=== PATIENT | male | born 1970 | race American Indian/Alaskan Native ===

== ENCOUNTER 2017-04-11 07:17 | Day surgery (SDC) | payer OTHER ==
[2017-04-11] MEDS ORDERED: NACL 0.9% 500 ML 500 ML IV SCH (08:00)
[2017-04-11] MEDS ORDERED: CALAN ONE (09:24)
[2017-04-11] MEDS ORDERED: HEPARIN 10,000 UNITS/10 ML ONE (09:24)
[2017-04-11] MEDS ORDERED: XYLOCAINE 2% INFILTRATI ONE (09:24)
[2017-04-11] MEDS ORDERED: NITROGLYCERIN SYRINGE 3 ML ONE (09:24)
[2017-04-11] MEDS ORDERED: HEPARIN/NS 5000 UNIT/500ML(CATH LAB) 1,000 ML IR ONE (09:24)
[2017-04-11 09:34] LABS: Basophils % (Auto) 0.8 % (0.0-1.8); Eosinophils % (Auto) 2.2 % (0.0-4.3); Hematocrit 42.8 % (35.5-45.6); Hemoglobin 14.3 gm/dl (11.8-15.2); Mean Corpuscular HGB Conc 33 % (32-34); Mean Corpuscular Hemoglobin 30 pg (28-32); Mean Corpuscular Volume 90 fl (84-94); Platelet Count 230 K/mm3 (140-440); Red Blood Count 4.77 M/mm3 (3.65-5.03); White Blood Count 4.4 K/mm3 (4.5-11.0)
[2017-04-11 09:40] LABS: Anion Gap 15 mmol/L; Blood Urea Nitrogen 16 mg/dL (9-20); Calcium 9.1 mg/dL (8.4-10.2); Carbon Dioxide 24 mmol/L (22-30); Chloride 103.4 mmol/L (98-107); Glucose 101 mg/dL (75-100); Potassium 4.5 mmol/L (3.6-5.0); Sodium 138 mmol/L (137-145)
[2017-04-11] MEDS: VERSED ONE ×2 (09:45→10:02)
[2017-04-11] MEDS: SUBLIMAZE ONE ×2 (09:45→09:53)
[2017-04-11 09:54] LABS: INR 0.97 (0.87-1.13)
--- NOTE | 2017-04-11 10:32 | Prelim Cardiac Cath Report ---
Preliminary Cath Report - Hemodynamic Findings Aorta(AO): 120/80 Left Ventricular(LV): 120/18 - Other Findings Estimated blood loss: none Dominance: right LV Contractility: anterior and apical dyskinesis with ef 40-45% Coronary Anatomy: findings: 1. CAD * multifocal lens inspector of mid LAD with nat 2 flow and under-developed collaterals (?result of old dissection) * chronic long dissection of the prox and mid RCA with nat 3 flow 2. Anterior and meredith-apical hypokinesis with ef of 40-45% 3. No as Pt is clinically stable and doing well. Standard radial care. Underlying connective tissue disorder or SCAD? D/w patient and at length. recommend cabg. Pt will be transferred to [facility] in stable condition for the same.
--- NOTE | 2017-04-11 11:04 | Short Stay Summary ---
Short Stay Documentation Date of service: 04/11/17 - History H&P: obtained from office - Allergies and Medications Current Medications: Allergies Penicillins Allergy (Verified 04/11/17 08:57) Rash Home Medications Medication Instructions Recorded Confirmed Last Taken Type Aspirin EC [Aspirin Enteric Coated 81 mg PO DAILY 04/11/17 04/11/17 04/11/17 06: 30 History TAB] Metoprolol Succinate [Metoprolol 25 mg PO BID 04/11/17 04/11/17 04/11/17 06:00 History Succinate] Active Medications Sodium Chloride (Nacl 0.9% 500 Ml) 500 mls @ 50 mls/hr IV DIRECT CHRISTIAN Stop: 04/11/17 17:59 Last Admin: 04/11/17 08:54 Dose: 50 mls/hr - Brief post op/procedure progress note Date of procedure: 04/11/17 Pre-op diagnosis: abnormal stress test Procedure: left heart cath - Hospital course Hospital course: Please see dictated cath report. Pt. transferred to [facility] for evaluation for CABG. - Disposition Condition at discharge: Stable Disposition: [id number]/TX-70 ANOTHER TYPE HLTHCARE - Discharge Diagnoses (1) CAD (coronary artery disease) Status: Acute Qualifiers: Coronary Disease-Associated Artery/Lesion type: C [place] vs. transplanted heart: N Associated angina: A (2) Hypertension Status: Chronic Qualifiers: Hypertension type: H Short Stay Discharge Plan Follow up with: JAMARI RYAN MD [Primary Care Provider] - 7 Days
[2017-04-11 12:34] VITALS: BP 147/100
== END 2017-04-11 12:45 | disposition other institution (70) ==
LOC: OPU 07:17
PROVIDERS: ATTEND Internal Medicine
DX: I25.10 Atherosclerotic heart disease of native coronary artery without angina pectoris (principal); I10 Essential (primary) hypertension; E66.9 Obesity, unspecified; Z68.32 Body mass index [BMI] 32.0-32.9, adult; Z88.0 Allergy status to penicillin; Z79.82 Long term (current) use of aspirin; Z79.899 Other long term (current) drug therapy; Z98.890 Other specified postprocedural states
CPT/HCPCS: 36415; 80048; 85025; 85610; 85730; 93005; 93010; 93458; C1894; J1644; J2250; J3010; J7040; Q9967

== ENCOUNTER 2017-04-25 15:45 | Inpatient (IN) | payer OTHER ==
[2017-04-25] MEDS ORDERED: PERCOCET 5/325 PO PRN (16:42)
[2017-04-25] MEDS ORDERED: DULCOLAX PR PRN (16:42)
[2017-04-25] MEDS ORDERED: DUONEB *Not for PRN Use IH (16:42)
[2017-04-25] MEDS ORDERED: ZOFRAN IV PRN (16:42)
[2017-04-25] MEDS ORDERED: MILK OF MAGNESIA PO PRN (16:42)
[2017-04-25] MEDS ORDERED: TYLENOL PO PRN (16:42)
--- NOTE | 2017-04-25 16:49 | History and Physical Report ---
History of Present Illness Chief complaint: My doctor told me to come in, because i have a blood clot History of present illness: 47 YO Male with HTN, CAD directly admitted at the request of the cardiology team. Pt was seen and evaluated in his cardiologists office and fond to have leg swelling, with ultrasound evidence of RLE DVT. Pt admitted for treatment. Pt seen and evaluated upon arrival. Pt denies fever, chills,CP, Palpitations, NVD, syncope, hemoptysis, BRBPR, trauma, productive cough, or recent ill contacts. Pt denies any complaints at time of exam and interview. Pt at bedside. Past History Past Medical History: CAD, hypertension Past Surgical History: No surgical history, Other (reviewed) Social history: , lives with family. denies: smoking, alcohol abuse, prescription drug abuse Family history: hypertension Medications and Allergies Allergies Allergy/AdvReac Type Severity Reaction Status Date / Time Penicillins Allergy Rash Verified 04/11/17 08:57 oxycodone AdvReac Shortness Verified 04/26/17 04:25 of Breath Home Medications Medication Instructions Recorded Confirmed Last Taken Type Aspirin EC [Aspirin Enteric Coated 81 mg PO DAILY 04/11/17 04/11/17 04/11/17 06: 30 History TAB] Metoprolol Succinate [Metoprolol 25 mg PO BID 04/11/17 04/11/17 04/11/17 06:00 History Succinate] Active Meds: Active Medications Acetaminophen (Tylenol) 650 mg PO Q4H PRN PRN Reason: Pain MILD(1-3)/Fever >100.5/ELLIOTT Albuterol/Ipratropium (Duoneb *Not For Prn Use*) 1 ampul IH Q6HRT PRN PRN Reason: Wheezing Bisacodyl (Dulcolax) 10 mg [place] QDAY PRN PRN Reason: Constipation unrelieved by [facility] Heparin Sodium (Porcine) (Heparin 10,000 Units/10 Ml) 0 unit IV ONCE ONE PRN Reason: Protocol Stop: 04/25/17 16:46 Magnesium Hydroxide (Milk Of Magnesia) 30 ml PO Q4H PRN PRN Reason: Constipation Ondansetron HCl (Zofran) 4 mg IV Q8H PRN PRN Reason: N/V unrelieved by Reglan Oxycodone/Acetaminophen (Percocet 5/325) 1 tab PO Q6H PRN PRN Reason: Pain, Moderate (4-6) Review of Systems All systems: negative Constitutional: no weight loss Ears, nose, mouth and throat: no ear pain Cardiovascular: no chest pain, no orthopnea, no palpitations Respiratory: no cough Gastrointestinal: no abdominal pain Genitourinary Male: no dysuria Rectal: no pain Musculoskeletal: no neck pain Integumentary: no rash Neurological: no head injury Psychiatric: no anxiety Endocrine: no cold intolerance Hematologic/Lymphatic: no easy bruising Allergic/Immunologic: no urticaria Exam - Constitutional General appearance: Present: mild distress - EENT Eyes: Present: PERRL ENT: hearing intact, clear oral mucosa - Neck Neck: Present: supple, normal ROM - Respiratory Respiratory effort: normal Respiratory: bilateral: CTA - Cardiovascular Heart Sounds: Present: S1 & S2. Absent: rub, click - Extremities Extremities: pulses symmetrical, No edema Extremity abnormal: edema, tenderness (RLE) Peripheral Pulses: within normal limits - Abdominal General gastrointestinal: Present: soft, non-tender, non-distended, normal bowel sounds Male genitourinary: Present: normal - Integumentary Integumentary: Present: clear, warm, dry - Musculoskeletal Musculoskeletal: gait normal, strength equal bilaterally - Psychiatric Psychiatric: appropriate mood/affect, intact judgment & insight - Neurologic Neurologic: CNII-XII intact, moves all extremities Results - Labs CBC & Chem 7: 04/25/17 20:17 04/25/17 20:17 Assessment and Plan - Patient Problems (1) DVT (deep venous thrombosis) Current Visit: Yes Status: Acute Qualifiers: DVT location: lower extremity Affected thrombotic vein of extremity: popliteal Chronicity: C Laterality: right Plan to address problem: Heparin drip, cardiology consulted, CTA chest, Echo, supportive care, (2) CAD (coronary artery disease) Current Visit: No Status: Acute Qualifiers: Coronary Disease-Associated Artery/Lesion type: [place] artery [place] vs. transplanted heart: N Associated angina: without angina Plan to address problem: resume home medication, telemetry, supportive care, (3) Hypertension Current Visit: No Status: Chronic Qualifiers: Hypertension type: H Plan to address problem: monitor bp q shift, resume home medication.
[2017-04-25] MEDS ORDERED: PROVENTIL IH PRN (18:41)
[2017-04-25 20:49] LABS: Basophils % (Auto) 0.6 % (0.0-1.8); Eosinophils % (Auto) 1.4 % (0.0-4.3); Hematocrit 33.8 % (35.5-45.6); Hemoglobin 11.6 gm/dl (11.8-15.2); Mean Corpuscular HGB Conc 34 % (32-34); Mean Corpuscular Hemoglobin 31 pg (28-32); Mean Corpuscular Volume 90 fl (84-94); Platelet Count 400 K/mm3 (140-440); Red Blood Count 3.76 M/mm3 (3.65-5.03); Red Cell Distribution Width 12.7 % (13.2-15.2); White Blood Count 8.9 K/mm3 (4.5-11.0)
[2017-04-25 21:02] LABS: INR 1.49 (0.87-1.13)
[2017-04-25 21:03] LABS: Partial Thromboplastin Time 37.3 Sec. (24.2-36.6)
[2017-04-25 21:12] LABS: Alanine Aminotransferase 57 units/L (7-56); Albumin 3.8 g/dL (3.9-5); Albumin/Globulin Ratio 1.4 %; Alkaline Phosphatase 71 units/L (35-129); Anion Gap 20 mmol/L; BUN/Creatinine Ratio 21.81; Blood Urea Nitrogen 24 mg/dL (9-20); Calcium 9.1 mg/dL (8.4-10.2); Carbon Dioxide 26 mmol/L (22-30); Chloride 99.3 mmol/L (98-107); Glucose 87 mg/dL (75-100); Potassium 4.8 mmol/L (3.6-5.0); Sodium 140 mmol/L (137-145); Total Protein 6.6 g/dL (6.3-8.2)
[2017-04-25] MEDS ORDERED: HEPARIN 10,000 UNITS/10 ML IV ONE (21:30)
[2017-04-25] MEDS ORDERED: NACL ONE (21:57)
--- NOTE | 2017-04-25 22:56 | Cat Scan Report ---
FINAL REPORT EXAM: CT ANGIO CHEST HISTORY: DVT/PE . Recent CABG procedure. TECHNIQUE: Enhanced CT of the chest at 2.5 mm axial intervals following a pulmonary embolism protocol. Coronal and sagittal imaging were also obtained. Coronal oblique MIP projections were obtained. Contrast: 75 ml of Isovue 300 given IV. PRIORS: None. FINDINGS: There are multiple small pulmonary emboli in the posterior basilar segment right lower lobe and anterior segment right upper lobe segmental pulmonary arteries. There is subtle linear stranding in the lumen of the left posterior basilar segment pulmonary arteries suggesting small emboli as well. There is a small left pleural effusion and adjacent compressive atelectasis in the left base. Otherwise, the lung parenchyma are expanded and clear with no evidence for parenchymal nodules, congestion, or right pleural effusion. There is no evidence for mediastinal, hilar, or axillary adenopathy. Cardiovascular structures are within normal limits. No evidence for ventricular chamber enlargement is seen. Median sternotomy wires are noted. There is mild postsurgical stranding in the fat anterior and posterior to the sternum due to a recent CABG procedure. Images through the lung bases include the upper abdomen which show a rounded low-density 1.9 x 1.5 cm focus in the left lobe liver consistent with a cyst. Bony structures demonstrate no focal abnormalities. IMPRESSION: 1. evidence for right-sided pulmonary emboli in the right upper and lower lobes. Suspected small emboli in the left lower lobe. 2. Small left pleural effusion with adjacent compressive atelectasis. 3. Small left lobe hepatic cyst 4. Postsurgical changes related to recent median sternotomy.
[2017-04-26] MEDS: HEPARIN/ 0.45% NACL-25,000 UNIT/500 ML 25,000 UNIT/500 ML BAG IV SCH (00:41)
[2017-04-26] MEDS ORDERED: HEPARIN 10,000 UNITS/10 ML IV ONE (01:00)
--- NOTE | 2017-04-26 08:27 | Admit Criteria Form ---
Admission Criteria Documentation: DEEP VENOUS THROMBOSIS OF LOWER EXTREMITIES Clinical Indications for Admission to Inpatient Care ( Place 'X' for any and all applicable criteria): Admission is indicated for ANY ONE of the following (1)(2)(3)(4): [ ]I. Documented extensive thrombosis (e.g., clot in vena cava or above iliofemoral bifurcation) [ ]II. Limb-threatening thrombosis (e.g., phlegmasia cerulea dolens) [ ]III. Active bleeding [ ]IV. Recent surgery (e.g., within 6 weeks) [ ]V. Active peptic ulcer disease [ ]. Thrombosis while on anticoagulation [ ]VII. [ X]VIII. Appropriate monitoring and therapy cannot be provided in home or outpatient setting [ ]IX. Thrombolysis (e.g., catheter-directed) or pharmaco mechanical thrombectomy needed (3) [ ]X. Vena cava filter placement planned (3) [ ]XI. Severely diminished cardiopulmonary reserve (e.g., pulmonary hypertension) [ ]XII. Severe renal failure (e.g., GFR less than 30 mL/min/1.73m2 (0.5 mL/sec /1.73m2)) [ ]XIII. Known clotting abnormality or deficiency (antithrombin III, protein C , or protein S) [ ]XIV. History of heparin-induced thrombocytopenia [ ]XV . Personal or family history of bleeding tendency or familial bleeding disorder that requires inpatient admission rather than observation care (Also use Deep Venous Thrombosis of Lower Extremities: Observation Care as appropriate) because of ANY ONE of the following: [ ]a) Significant allergic, autoimmune (thrombocytopenia), or coagulopathic reaction occurs in response to anticoagulation [ ]b) Other significant finding or clinical condition judged not to be within the scope of observation care Extended stay beyond goal length of stay may be needed for(1)(19): [ ]a) Hemorrhage or recent surgery(3) [ ]b) Inadequate oral anticoagulation [ ]c) Recurrent thromboembolism(3) [ ]d) Heparin-induced thrombocytopenia(14) The original [facility] content created by [facility] has been revised. The portions of the content which have been revised are identified through the use of italic text or in bold, and [facility] has neither reviewed nor approved the modified material. All other unmodified content is copyright [facility]. Please see references footnoted in the original [facility] edition 2016 Admission Criteria Met: Yes
--- NOTE | 2017-04-26 09:33 | Hem/Onc Consultation ---
History of Present Illness - Reason for Consult Consult date: 04/26/17 - History of Present Illness dictated switch to eliquis in 1-2 days hypercoag w/u ordered Past History Past Medical History: CAD, hypertension Past Surgical History: No surgical history, Other (reviewed) Social history: , lives with family. denies: smoking, alcohol abuse, prescription drug abuse Family history: hypertension Medications and Allergies Allergies Allergy/AdvReac Type Severity Reaction Status Date / Time Penicillins Allergy Rash Verified 04/11/17 08:57 oxycodone AdvReac Shortness Verified 04/26/17 04:25 of Breath Home Medications Medication Instructions Recorded Confirmed Last Taken Type Aspirin EC [Aspirin Enteric Coated 81 mg PO DAILY 04/11/17 04/11/17 04/11/17 06: 30 History TAB] Metoprolol Succinate [Metoprolol 25 mg PO BID 04/11/17 04/11/17 04/11/17 06:00 History Succinate] Active Meds: Active Medications Acetaminophen (Tylenol) 650 mg PO Q4H PRN PRN Reason: Pain MILD(1-3)/Fever >100.5/ELLIOTT Albuterol (Proventil) 2.5 mg IH Q4HRT PRN PRN Reason: Shortness Of Breath Bisacodyl (Dulcolax) 10 mg [place] QDAY PRN PRN Reason: Constipation unrelieved by MOM Heparin Sodium/Sodium Chloride (Heparin/ 0.45% Nacl-25,000 Unit/500 Ml) 25,000 unit in 500 mls @ 27 mls/hr IV TITR CHRISTIAN; 1,350 UNITS/HR PRN Reason: Protocol Last Admin: 04/26/17 00:41 Dose: 1,350 units/hr, 27 mls/hr Magnesium Hydroxide (Milk Of Magnesia) 30 ml PO Q4H PRN PRN Reason: Constipation Ondansetron HCl (Zofran) 4 mg IV Q8H PRN PRN Reason: N/V unrelieved by Reglan Oxycodone/Acetaminophen (Percocet 5/325) 1 tab PO Q6H PRN PRN Reason: Pain, Moderate (4-6) Exam - Constitutional Vitals: Last Vital Signs Temp 98.1 F 04/26/17 08:06 Pulse 91 H 04/26/17 08:06 Resp 18 04/26/17 08:06 BP 111/67 04/26/17 08:06 Pulse Ox 98 04/26/17 08:06 Results - Labs lab Results: Laboratory Results - last 24 hr 04/25/17 04/25/17 04/25/17 20:17 20:17 20:17 WBC 8.9 RBC 3.76 Hgb 11.6 L Hct 33.8 L MCV 90 MCH 31 MCHC 34 RDW 12.7 L Plt Count 400 Lymph % (Auto) 30.7 [place] % (Auto) 8.0 H Eos % (Auto) 1.4 Baso % (Auto) 0.6 Lymph # 2.7 [place] # 0.7 Eos # 0.1 Baso # 0.1 Seg Neutrophils % 59.3 Seg Neutrophils # 5.3 PT 18.8 H INR 1.49 H APTT 37.3 H Heparin Anti-Xa Level Sodium 140 Potassium 4.8 Chloride 99.3 Carbon Dioxide 26 Anion Gap 20 BUN 24 H Creatinine 1.1 Estimated GFR > 60 BUN/Creatinine Ratio 21.81 Glucose 87 Calcium 9.1 Total Bilirubin 0.40 AST 51 H ALT 57 H Alkaline Phosphatase 71 Total Protein 6.6 Albumin 3.8 L Albumin/Globulin Ratio 1.4 04/26/17 07:17 WBC RBC Hgb Hct MCV MCH MCHC RDW Plt Count Lymph % (Auto) [place] % (Auto) Eos % (Auto) Baso % (Auto) Lymph # [place] # Eos # Baso # Seg Neutrophils % Seg Neutrophils # PT INR APTT Heparin Anti-Xa Level > 2.00 H Sodium Potassium Chloride Carbon Dioxide Anion Gap BUN Creatinine Estimated GFR BUN/Creatinine Ratio Glucose Calcium Total Bilirubin AST ALT Alkaline Phosphatase Total Protein Albumin Albumin/Globulin Ratio
--- NOTE | 2017-04-26 10:00 | Consultation ---
History of Present Illness Consult date: 04/26/17 Requesting physician: SHIRLEY AMAYA Consult reason: known to you, other (DVT/PE) History of present illness: The pt is a 47 YO male with a past medical history significant for CAD, s/p CABG 3 with CLIFFORD to the LAD, SVG to the PDA and SVG to D1 on 04/16/2017 with uneventful recovery and DVT of RLE (s/p appendectomy several years ago; completed ~6 months of coumadin therapy). He is followed in our office by Dr. Colbert. The pt called our office on 04/24 with c/o RLE pain. He underwent RLE venous doppler in our office, which revealed DVT involving the right popliteal vein. He was seen in our office yesterday to review these results and at that visit, he c/o pre-syncope. He was sent to [facility] for direct admission for further eval/management. Following admission, he underwent chest CTA which showed evidence for right-sided pulmonary emboli in the right upper and lower lobes and suspected small emboli in the left lower lobe. He was initiated on heparin gtt. On evaluation, he denies any complaints and is clinically and hemodynamically stable. Post-operative echo done 04/16/2017 showed EF >55%, mild TR, trace MR, descending aorta atherosclerosis grade 2. Past History Past Medical History: CAD Past Surgical History: appendectomy, CABG Social history: , lives with family. denies: smoking, alcohol abuse, prescription drug abuse Family history: hypertension Medications and Allergies Allergies Allergy/AdvReac Type Severity Reaction Status Date / Time Penicillins Allergy Rash Verified 04/11/17 08:57 oxycodone AdvReac Shortness Verified 04/26/17 04:25 of Breath Home Medications Medication Instructions Recorded Confirmed Last Taken Type Aspirin EC [Aspirin Enteric Coated 81 mg PO DAILY 04/11/17 04/11/17 04/11/17 06: 30 History TAB] Metoprolol Succinate [Metoprolol 25 mg PO BID 04/11/17 04/11/17 04/11/17 06:00 History Succinate] Active Meds: Active Medications Acetaminophen (Tylenol) 650 mg PO Q4H PRN PRN Reason: Pain MILD(1-3)/Fever >100.5/ELLIOTT Albuterol (Proventil) 2.5 mg IH Q4HRT PRN PRN Reason: Shortness Of Breath Bisacodyl (Dulcolax) 10 mg [place] QDAY PRN PRN Reason: Constipation unrelieved by MOM Heparin Sodium/Sodium Chloride (Heparin/ 0.45% Nacl-25,000 Unit/500 Ml) 25,000 unit in 500 mls @ 27 mls/hr IV TITR CHRISTIAN; 1,350 UNITS/HR PRN Reason: Protocol Last Admin: 04/26/17 00:41 Dose: 1,350 units/hr, 27 mls/hr Magnesium Hydroxide (Milk Of Magnesia) 30 ml PO Q4H PRN PRN Reason: Constipation Ondansetron HCl (Zofran) 4 mg IV Q8H PRN PRN Reason: N/V unrelieved by Reglan Oxycodone/Acetaminophen (Percocet 5/325) 1 tab PO Q6H PRN PRN Reason: Pain, Moderate (4-6) Review of Systems Constitutional: no weight loss, no weight gain, no fever, no chills, no sweats Ears, nose, mouth and throat: no ear pain, no nose pain, no sinus pressure, no sinus pain Cardiovascular: lightheadedness, no chest pain, no orthopnea, no palpitations, no rapid/irregular heart beat, no edema, no syncope, no shortness of breath, no dyspnea on exertion, no paroxysmal nocturnal dyspnea, no leg edema, no decreased exercise tolerance Respiratory: no cough, no shortness of breath, no dyspnea on exertion, no congestion, no wheezing, no pain on inspiration Gastrointestinal: no abdominal pain, no nausea, no vomiting, no diarrhea, no constipation, no change in bowel habits Genitourinary Male: no dysuria, no hematuria, no flank pain, no discharge, no urinary frequency, no urinary hesitancy Musculoskeletal: other (RLE calf pain), no neck stiffness, no neck pain, no shooting arm pain, no arm numbness/tingling, no low back pain, no leg numbness/ tingling, no redness of joints Integumentary: no rash, no pruritis, no redness, no sores, no wounds Neurological: no head injury, no paralysis, no weakness, no parathesias, no numbness, no tingling, no seizures, no syncope Psychiatric: no anxiety Endocrine: no cold intolerance, no heat intolerance Hematologic/Lymphatic: no easy bruising, no easy bleeding, no lymphadenopathy Allergic/Immunologic: no urticaria, no wheezing, no persistent infections Physical Examination Vital Signs Temp Pulse Resp BP Pulse Ox 98.9 F 99 H 18 121/77 99 04/25/17 19:54 04/25/17 19:54 04/25/17 19:54 04/25/17 19:54 04/25/17 19:54 General appearance: no acute distress HEENT: Positive: PERRL, Normocephaly, Mucus Membranes Moist Neck: Positive: neck supple, trachea midline Cardiac: Positive: Reg Rate and Rhythm, S1/S2 Lungs: Positive: Normal Exam, clear to auscultation, Normal Breath Sounds Neuro: Positive: Grossly Intact, Cranial Nerve 2-12 Intact Abdomen: Positive: Unremarkable, Soft, Active Bowel Sounds. Negative: Tender Skin: Positive: Clear. Negative: Rash, Wound Musculoskeletal: No Fluid Collection, No Pain, Normal Range of Motion Extremities: Present: upper extr. pulses, lower extr. pulses. Absent: edema Results 04/25/17 20:17 04/25/17 20:17 Cardiac Enzymes 04/25/17 Range/Units 20:17 AST 51 H (5-40) units/L Coagulation 04/25/17 Range/Units 20:17 PT 18.8 H (12.2-14.9) Sec. INR 1.49 H (0.87-1.13) APTT 37.3 H (24.2-36.6) Sec. CBC 04/25/17 Range/Units 20:17 WBC 8.9 (4.5-11.0) K/mm3 RBC 3.76 (3.65-5.03) M/mm3 Hgb 11.6 L (11.8-15.2) gm/dl Hct 33.8 L (35.5-45.6) % Plt Count 400 (140-440) K/mm3 Lymph # 2.7 (1.2-5.4) K/mm3 [place] # 0.7 (0.0-0.8) K/mm3 Eos # 0.1 (0.0-0.4) K/mm3 Baso # 0.1 (0.0-0.1) K/mm3 Comprehensive Metabolic Panel 04/25/17 Range/Units 20:17 Sodium 140 (137-145) mmol/L Potassium 4.8 (3.6-5.0) mmol/L Chloride 99.3 (98-107) mmol/L Carbon Dioxide 26 (22-30) mmol/L BUN 24 H (9-20) mg/dL Creatinine 1.1 (0.8-1.5) mg/dL Glucose 87 (75-100) mg/dL Calcium 9.1 (8.4-10.2) mg/dL AST 51 H (5-40) units/L ALT 57 H (7-56) units/L Alkaline Phosphatase 71 (35-129) units/L Total Protein 6.6 (6.3-8.2) g/dL Albumin 3.8 L (3.9-5) g/dL - Imaging and Cardiology Echo: report reviewed Cardiac cath: report reviewed EKG: report reviewed, image reviewed EKG interpretations - Telemetry EKG Rhythm: Sinus Rhythm - EKG Sinus rhythms and dysrhythmias: sinus rhythm Assessment and Plan Assessment: PE RLE DVT CAD, s/p CABG x 3 on 04/16/2017 H/o DVT in RLE Plan: Currently stable cardiac status with no evidence of clinical or hemodynamic instability. Cont tele. Cont heparin gtt. Resume home ASA 81mg daily, lipitor 40mg daily, and lopressor , 25mg PO BID. Hold home plavix in setting of current anticoagulation therapy. Hematology consultation noted and appreciated. Hypercoag w/u in progress per hematology. Await echo. Assessment and plan reviewed with pt at bedside. The patient has been seen in conjunction with Dr. Gunter who agrees with the assessment and plan of care.
[2017-04-26] MEDS: BABY ASPIRIN PO SCH (12:02)
--- NOTE | 2017-04-26 19:50 | Progress Note ---
Assessment and Plan Assessment and plan: --Pulmonary embolism Oxygen titrated to O2 sats more than 90%, heparin drip per protocol, supportive care Hematology oncology evaluation and recommendations noted and appreciated --Right lower extremity DVT; continue full anticoagulation with heparin drip, elevated the limb Supportive care, May DC heparin drip and discharged on Coumadin or Eliquis --History of recurrent thromboembolism; Hypercoagulation panel is requested per hematology --coronary artery disease status post CABG; cardiology following, continue current management hold Plavix Closely monitor DC planning. Case management The monitor the patient and adjust the management as needed Plan of care discussed with the patient, his nurse and the case management Consults and recommendations noted and appreciated History Interval history: Patient seen and evaluated medical records reviewed Admitted with PE and DVT on heparin drip Patient feels better no new complaints Alert awake oriented 3 not in acute distress, vital signs reviewed Hospitalist Physical - Constitutional Vitals: Temp Pulse Resp BP Pulse Ox 98.4 F 77 20 112/63 99 04/26/17 17:14 04/26/17 17:14 04/26/17 17:14 04/26/17 17:14 04/26/17 17:14 General appearance: Present: no acute distress, well-nourished - EENT Eyes: Present: PERRL, EOM intact - Neck Neck: Present: supple, normal ROM - Respiratory Respiratory effort: normal Respiratory: bilateral: diminished, negative: rales, rhonchi, wheezing - Cardiovascular Rhythm: regular Heart Sounds: Present: S1 & S2 - Extremities Extremities: no ischemia, No edema - Abdominal General gastrointestinal: soft, non-tender, non-distended, normal bowel sounds - Integumentary Integumentary: Present: clear, warm - Psychiatric Psychiatric: appropriate mood/affect, cooperative - Neurologic Neurologic: CNII-XII intact, moves all extremities Results - Labs CBC & Chem 7: 04/25/17 20:17 04/25/17 20:17 Labs: Laboratory Last Values WBC 8.9 K/mm3 (4.5-11.0) 04/25/17 20:17 RBC 3.76 M/mm3 (3.65-5.03) 04/25/17 20:17 Hgb 11.6 gm/dl (11.8-15.2) L 04/25/17 20:17 Hct 33.8 % (35.5-45.6) L 04/25/17 20:17 MCV 90 fl (84-94) 04/25/17 20:17 MCH 31 pg (28-32) 04/25/17 20:17 MCHC 34 % (32-34) 04/25/17 20:17 RDW 12.7 % (13.2-15.2) L 04/25/17 20:17 Plt Count 400 K/mm3 (140-440) 04/25/17 20:17 Lymph % (Auto) 30.7 % (13.4-35.0) 04/25/17 20:17 [place] % (Auto) 8.0 % (0.0-7.3) H 04/25/17 20:17 Eos % (Auto) 1.4 % (0.0-4.3) 04/25/17 20:17 Baso % (Auto) 0.6 % (0.0-1.8) 04/25/17 20: Lymph # 2.7 K/mm3 (1.2-5.4) 04/25/17 20:17 [place] # 0.7 K/mm3 (0.0-0.8) 04/25/17 20:17 Eos # 0.1 K/mm3 (0.0-0.4) 04/25/17 20:17 Baso # 0.1 K/mm3 (0.0-0.1) 04/25/17 20:17 Seg Neutrophils % 59.3 % (40.0-70.0) 04/25/17 20: Seg Neutrophils # 5.3 K/mm3 (1.8-7.7) 04/25/17 20:17 PT 18.8 Sec. (12.2-14.9) H 04/25/17 20:17 INR 1.49 (0.87-1.13) H 04/25/17 20:17 APTT 37.3 Sec. (24.2-36.6) H 04/25/17 20:17 Heparin Anti-Xa Level 0.55 U.I./ml (0.3-0.7) 04/26/17 14:10 Sodium 140 mmol/L (137-145) 04/25/17 20:17 Potassium 4.8 mmol/L (3.6-5.0) 04/25/17 20:17 Chloride 99.3 mmol/L (98-107) 04/25/17 20:17 Carbon Dioxide 26 mmol/L (22-30) 04/25/17 20:17 Anion Gap 20 mmol/L 04/25/17 20:17 BUN 24 mg/dL (9-20) H 04/25/17 20:17 Creatinine 1.1 mg/dL (0.8-1.5) 04/25/17 20:17 Estimated GFR > 60 ml/min 04/25/17 20:17 BUN/Creatinine Ratio 21.81 % 04/25/17 20:17 Glucose 87 mg/dL (75-100) 04/25/17 20:17 Calcium 9.1 mg/dL (8.4-10.2) 04/25/17 20:17 Total Bilirubin 0.40 mg/dL (0.1-1.2) 04/25/17 20:17 AST 51 units/L (5-40) H 04/25/17 20:17 ALT 57 units/L (7-56) H 04/25/17 20:17 Alkaline Phosphatase 71 units/L (35-129) 04/25/17 20:17 Total Protein 6.6 g/dL (6.3-8.2) 04/25/17 20:17 Albumin 3.8 g/dL (3.9-5) L 04/25/17 20:17 Albumin/Globulin Ratio 1.4 % 04/25/17 20:17
[2017-04-26] MEDS: LOPRESSOR PO SCH (21:58)
[2017-04-27] MEDS: HEPARIN/ 0.45% NACL-25,000 UNIT/500 ML 25,000 UNIT/500 ML BAG IV SCH ×2 (01:29→19:18)
--- NOTE | 2017-04-27 05:04 | Consultation ---
REFERRING PHYSICIAN: Dr. Fransico Gunter. REASON FOR CONSULTATION: Hypercoagulable state. HISTORY OF PRESENT ILLNESS: The patient is a very pleasant 47-year-old male with hypertension and coronary artery disease. He had a CABG procedure on 04/14/2017. Two or so days after the procedure, he started having lower extremity pain, especially on the right side. He was seen by ____ in his office and ultrasound of the right leg showed evidence of DVT. He denies any shortness of breath. Denies any bleeding. He was admitted to the hospital for workup and treatment. During his hospital course, he did undergo CT angiogram of the chest where he was found to have evidence of right-sided pulmonary emboli in the right upper and lower lobe with suspected small emboli in the left lower lobe. There was also a small left pleural effusion, small left hepatic cyst, and postsurgical changes from recent sternotomy. The patient is currently on heparin. Hematology/Oncology consult was called for hypercoagulable state. About 14-15 years ago, the patient after appendectomy did develop a right-sided DVT, was treated with Coumadin at that time. The patient denies any family history of DVT. Does have family history of coronary artery disease. He does not smoke. Does not drink. Does not take any hormones. PHYSICAL EXAMINATION: GENERAL: The patient is awake and oriented. HEAD AND ENT: Unremarkable. CHEST: Clear. CARDIOVASCULAR SYSTEM: Regular rate and rhythm. ABDOMEN: Soft, nontender. EXTREMITIES: Have no obvious edema. There is some tenderness in the right leg. PERTINENT LABS: The patient's hemoglobin is 11.6 and platelets 400,000. INR 1.49. AST 51, ALT 57, creatinine 1.1. ASSESSMENT: 1. Deep venous thrombosis, right leg, with pulmonary emboli after coronary artery bypass graft. 2. Previous history of deep venous thrombosis after appendectomy. RECOMMENDATIONS AND PLAN: At this time, the patient is aware that he is going to need anticoagulation indefinitely. I will do hypercoagulable workup. Once stable ____, he can be switched to Eliquis. Upon discharge, I would like to see him to discuss the hypercoagulable workup. I have given my card to the patient. JOB# [id number] GKS/NTS
[2017-04-27 06:58] LABS: Hematocrit 31.5 % (35.5-45.6)
[2017-04-27] MEDS: LOPRESSOR PO SCH ×2 (10:15→22:34)
[2017-04-27] MEDS: BABY ASPIRIN PO SCH (10:17)
--- NOTE | 2017-04-27 13:39 | Progress Note ---
Assessment and Plan PE RLE DVT CAD, s/p CABG x 3 on 04/16/2017 H/o DVT in RLE Hypercoagulable work up is in proress. Plan: Change heparin to Eliquis tomorrow.Then DC if stable. Subjective Date of service: 04/27/17 Interval history: No CP or short of breath.On Heparin drip. Objective Vital Signs Temp Pulse Pulse Resp BP BP Pulse Ox 04/27/17 11:30 98.6 F 91 H 20 110/72 04/27/17 11:21 100 04/27/17 10:15 84 99/60 04/27/17 10:00 20 04/27/17 07:50 98.4 F 85 20 99/61 100 04/27/17 03:30 98.0 F 88 18 100/63 98 04/26/17 23:30 98.2 F 86 18 109/64 97 04/26/17 22:00 99 04/26/17 21:58 97 H 104/64 04/26/17 19:53 98.2 F 94 H 18 104/64 100 04/26/17 17:14 98.4 F 77 20 112/63 99 04/26/17 13:52 70 - Physical Examination HEENT: Positive: PERRL, Normocephaly, Mucus Membranes Moist Neck: Positive: neck supple, trachea midline. Negative: JVD/HJR Cardiac: Positive: Reg Rate and Rhythm Lungs: Positive: clear to auscultation Neuro: Positive: Grossly Intact, Cranial Nerve 2-12 Intact Abdomen: Positive: Unremarkable, Soft, Active Bowel Sounds. Negative: Organomegaly, Tender Skin: Positive: Clear. Negative: Rash, Wound Musculoskeletal: No Fluid Collection, No Pain, Normal Range of Motion Extremities: Present: normal, upper extr. pulses, lower extr. pulses. Absent: edema - Labs and Meds CBC 04/27/17 Range/Units 05:58 Hgb 11.0 L (11.8-15.2) gm/dl Hct 31.5 L (35.5-45.6) % Plt Count 385 (140-440) K/mm3 - Imaging and Cardiology EKG: report reviewed (Right axis deviation), image reviewed Echo: report reviewed Cardiac cath: report reviewed - EKG Sinus rhythms and dysrhythmias: sinus rhythm
--- NOTE | 2017-04-27 17:31 | Progress Note ---
Assessment and Plan Assessment and plan: --Pulmonary embolism Oxygen titrate O2 sats more than 90%, heparin drip per protocol, supportive care Hematology oncology to DC heparin drip 2 days and start oral Eliquis --Right lower extremity DVT; continue full anticoagulation with heparin drip, elevated the limb Supportive care, May DC heparin drip and discharged on Eliquis 1-2 days --History of recurrent thromboembolism; Hypercoagulable panel is requested per hematology --coronary artery disease status post CABG; cardiology following, continue current management hold Plavix Closely monitor DC planning. Case management We will monitor the patient and adjust the management as needed Plan of care discussed with the patient, his nurse and the case management Possible Discharge in 1-2 days if stable History Interval history: Patient seen and evaluated medical records reviewed No new events reported by the nursing staff, patient feels better on full dose anticoagulation for his PE Denies chest pain or shortness of breath Hospitalist Physical - Constitutional Vitals: Temp Pulse Resp BP Pulse Ox 99.1 F 91 H 20 104/61 100 04/27/17 14:55 04/27/17 14:55 04/27/17 14:55 04/27/17 14:55 04/27/17 11:21 General appearance: Present: no acute distress, well-nourished - EENT Eyes: Present: PERRL, EOM intact - Neck Neck: Present: supple, normal ROM - Respiratory Respiratory effort: normal Respiratory: bilateral: diminished, negative: rales, rhonchi, wheezing - Cardiovascular Rhythm: regular Heart Sounds: Present: S1 & S2 - Extremities Extremities: no ischemia, pulses intact, pulses symmetrical - Abdominal General gastrointestinal: soft, non-tender, non-distended, normal bowel sounds - Integumentary Integumentary: Present: clear, warm - Psychiatric Psychiatric: appropriate mood/affect, cooperative - Neurologic Neurologic: CNII-XII intact, moves all extremities Results - Labs CBC & Chem 7: 04/27/17 05:58 04/25/17 20:17 Labs: Laboratory Last Values WBC 8.9 K/mm3 (4.5-11.0) 04/25/17 20:17 RBC 3.76 M/mm3 (3.65-5.03) 04/25/17 20:17 Hgb 11.0 gm/dl (11.8-15.2) L 04/27/17 05:58 Hct 31.5 % (35.5-45.6) L 04/27/17 05:58 MCV 90 fl (84-94) 04/25/17 20:17 MCH 31 pg (28-32) 04/25/17 20:17 MCHC 34 % (32-34) 04/25/17 20:17 RDW 12.7 % (13.2-15.2) L 04/25/17 20:17 Plt Count 385 K/mm3 (140-440) 04/27/17 05:58 Lymph % (Auto) 30.7 % (13.4-35.0) 04/25/17 20:17 [place] % (Auto) 8.0 % (0.0-7.3) H 04/25/17 20:17 Eos % (Auto) 1.4 % (0.0-4.3) 04/25/17 20:17 Baso % (Auto) 0.6 % (0.0-1.8) 04/25/17 20:17 Lymph # 2.7 K/mm3 (1.2-5.4) 04/25/17 20:17 [place] # 0.7 K/mm3 (0.0-0.8) 04/25/17 20:17 Eos # 0.1 K/mm3 (0.0-0.4) 04/25/17 20:17 Baso # 0.1 K/mm3 (0.0-0.1) 04/25/17 20:17 Seg Neutrophils % 59.3 % (40.0-70.0) 04/25/17 20:17 Seg Neutrophils # 5.3 K/mm3 (1.8-7.7) 04/25/17 20:17 PT 18.8 Sec. (12.2-14.9) H 04/25/17 20:17 INR 1.49 (0.87-1.13) H 04/25/17 20:17 APTT 37.3 Sec. (24.2-36.6) H 04/25/17 20:17 Heparin Anti-Xa Level 0.40 U.I./ml (0.3-0.7) 04/27/17 15:47 Sodium 140 mmol/L (137-145) 04/25/17 20:17 Potassium 4.8 mmol/L (3.6-5.0) 04/25/17 20:17 Chloride 99.3 mmol/L (98-107) 04/25/17 20:17 Carbon Dioxide 26 mmol/L (22-30) 04/25/17 20:17 Anion Gap 20 mmol/L 04/25/17 20:17 BUN 24 mg/dL (9-20) H 04/25/17 20:17 Creatinine 1.1 mg/dL (0.8-1.5) 04/25/17 20:17 Estimated GFR > 60 ml/min 04/25/17 20: BUN/Creatinine Ratio 21.81 % 04/25/17 20: Glucose 87 mg/dL (75-100) 04/25/17 20: Calcium 9.1 mg/dL (8.4-10.2) 04/25/17 20:17 Total Bilirubin 0.40 mg/dL (0.1-1.2) 04/25/17 20:17 AST 51 units/L (5-40) H 04/25/17 20:17 ALT 57 units/L (7-56) H 04/25/17 20:17 Alkaline Phosphatase 71 units/L (35-129) 04/25/17 20:17 Total Protein 6.6 g/dL (6.3-8.2) 04/25/17 20: Albumin 3.8 g/dL (3.9-5) L 04/25/17 20:17 Albumin/Globulin Ratio 1.4 % 04/25/17 20:17
[2017-04-28] MEDS: BABY ASPIRIN PO SCH (10:26)
[2017-04-28] MEDS: LOPRESSOR PO SCH ×2 (10:29→22:10)
--- NOTE | 2017-04-28 13:37 | Progress Note ---
Assessment and Plan PE RLE DVT CAD, s/p CABG x 3 on 04/16/2017 H/o DVT in RLE Hypercoagulable work up is in proress. Plan: Change heparin to Eliquis tomorrow.Then DC if stable.Spoke with Hospitalist, . Subjective Date of service: 04/28/17 Interval history: No cardiac symptoms. No CP or short of breath. On IV heparin. Objective Vital Signs Temp Pulse Pulse Pulse Resp BP BP 04/28/17 12:54 98.1 F 82 16 109/69 04/28/17 10:29 98 H 109/63 04/28/17 10:00 04/28/17 08:24 98.3 F 88 20 109/63 04/28/17 05:20 98.8 F 83 20 100/55 04/28/17 05:00 88 04/28/17 00:55 98.7 F 89 20 110/61 04/27/17 21:52 04/27/17 21:00 80 04/27/17 19:53 98.5 F 89 18 103/64 04/27/17 14:55 99.1 F 91 H 20 104/61 Pulse Ox 04/28/17 12:54 100 04/28/17 10:29 04/28/17 10:00 98 04/28/17 08:24 97 04/28/17 05:20 98 04/28/17 05:00 04/28/17 00:55 20 L 04/27/17 21:52 99 04/27/17 21:00 04/27/17 19:53 98 04/27/17 14:55 - Physical Examination HEENT: Positive: PERRL, Normocephaly, Mucus Membranes Moist Neck: Positive: neck supple, trachea midline. Negative: JVD/HJR Cardiac: Positive: Regular Rate, S1/S2, S4 Lungs: Positive: clear to auscultation Neuro: Positive: Grossly Intact, Cranial Nerve 2-12 Intact Abdomen: Positive: Unremarkable, Soft, Active Bowel Sounds. Negative: Organomegaly, Tender Skin: Positive: Clear. Negative: Rash, Wound Musculoskeletal: No Fluid Collection, No Pain, Normal Range of Motion Extremities: Present: normal, upper extr. pulses, lower extr. pulses. Absent: edema - Imaging and Cardiology EKG: report reviewed (Right axis deviation), image reviewed Echo: report reviewed Cardiac cath: report reviewed - Telemetry EKG Rhythm: Sinus Rhythm - EKG Sinus rhythms and dysrhythmias: sinus rhythm
[2017-04-28] MEDS: HEPARIN/ 0.45% NACL-25,000 UNIT/500 ML 25,000 UNIT/500 ML BAG IV SCH (14:40)
--- NOTE | 2017-04-28 14:59 | Progress Note ---
Assessment and Plan Assessment and plan: --Pulmonary embolism continue heparin drip per protocol, symptoms significantly improved DC heparin drip tomorrow and start oral Eliquis per gis manager --Right lower extremity DVT; continue full anticoagulation with heparin drip, elevated the limb Supportive care, May DC heparin drip and discharged on Eliquis tomorrow if stable --History of recurrent thromboembolism; Hypercoagulable panel is requested per hematology, follow-up with gis manager upon discharge --coronary artery disease status post CABG; cardiology following, continue current management hold Plavix DC planning. 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 Discharge planning per Case management History Interval history: Patient Seen and examined in his room and medical records reviewed No new events reported by nursing staff, On heparin drip for bilateral PE and DVT Denies chest pain or shortness of breath, alert awake oriented 3 not in acute distress Hospitalist Physical - Constitutional Vitals: Temp Pulse Resp BP Pulse Ox 98.1 F 82 16 109/69 100 04/28/17 12:54 04/28/17 12:54 04/28/17 12:54 04/28/17 12:54 04/28/17 12:54 General appearance: Present: no acute distress, well-nourished - EENT Eyes: Present: PERRL, EOM intact - Neck Neck: Present: supple, normal ROM - Respiratory Respiratory effort: normal Respiratory: negative: rales, rhonchi, wheezing - Cardiovascular Rhythm: regular Heart Sounds: Present: S1 & S2 - Extremities Extremities: no ischemia, No edema - Abdominal General gastrointestinal: soft, non-tender, non-distended, normal bowel sounds - Integumentary Integumentary: Present: clear, warm - Psychiatric Psychiatric: appropriate mood/affect - Neurologic Neurologic: CNII-XII intact, moves all extremities Results - Labs CBC & Chem 7: 04/27/17 05:58 04/25/17 20:17 Labs: Laboratory Last Values WBC 8.9 K/mm3 (4.5-11.0) 04/25/17 20:17 RBC 3.76 M/mm3 (3.65-5.03) 04/25/17 20:17 Hgb 11.0 gm/dl (11.8-15.2) L 04/27/17 05:58 Hct 31.5 % (35.5-45.6) L 04/27/17 05:58 MCV 90 fl (84-94) 04/25/17 20:17 MCH 31 pg (28-32) 04/25/17 20:17 MCHC 34 % (32-34) 04/25/17 20:17 RDW 12.7 % (13.2-15.2) L 04/25/17 20:17 Plt Count 385 K/mm3 (140-440) 04/27/17 05:58 Lymph % (Auto) 30.7 % (13.4-35.0) 04/25/17 20:17 [place] % (Auto) 8.0 % (0.0-7.3) H 04/25/17 20:17 Eos % (Auto) 1.4 % (0.0-4.3) 04/25/17 20:17 Baso % (Auto) 0.6 % (0.0-1.8) 04/25/17 20:17 Lymph # 2.7 K/mm3 (1.2-5.4) 04/25/17 20:17 [place] # 0.7 K/mm3 (0.0-0.8) 04/25/17 20:17 Eos # 0.1 K/mm3 (0.0-0.4) 04/25/17 20:17 Baso # 0.1 K/mm3 (0.0-0.1) 04/25/17 20:17 Seg Neutrophils % 59.3 % (40.0-70.0) 04/25/17 20:17 Seg Neutrophils # 5.3 K/mm3 (1.8-7.7) 04/25/17 20:17 PT 18.8 Sec. (12.2-14.9) H 04/25/17 20:17 INR 1.49 (0.87-1.13) H 04/25/17 20:17 APTT 37.3 Sec. (24.2-36.6) H 04/25/17 20:17 Antithrombin III Ag 78 % (80-120) L 04/26/17 09:39 Heparin Anti-Xa Level 0.40 U.I./ml (0.3-0.7) 04/27/17 15:47 Sodium 140 mmol/L (137-145) 04/25/17 20:17 Potassium 4.8 mmol/L (3.6-5.0) 04/25/17 20:17 Chloride 99.3 mmol/L (98-107) 04/25/17 20:17 Carbon Dioxide 26 mmol/L (22-30) 04/25/17 20:17 Anion Gap 20 mmol/L 04/25/17 20:17 BUN 24 mg/dL (9-20) H 04/25/17 20:17 Creatinine 1.1 mg/dL (0.8-1.5) 04/25/17 20:17 Estimated GFR > 60 ml/min 04/25/17 20:17 BUN/Creatinine Ratio 21.81 % 04/25/17 20:17 Glucose 87 mg/dL (75-100) 04/25/17 20:17 Calcium 9.1 mg/dL (8.4-10.2) 04/25/17 20:17 Total Bilirubin 0.40 mg/dL (0.1-1.2) 04/25/17 20:17 AST 51 units/L (5-40) H 04/25/17 20:17 ALT 57 units/L (7-56) H 04/25/17 20:17 Alkaline Phosphatase 71 units/L (35-129) 04/25/17 20:17 Total Protein 6.6 g/dL (6.3-8.2) 04/25/17 20:17 Albumin 3.8 g/dL (3.9-5) L 04/25/17 20:17 Albumin/Globulin Ratio 1.4 % 04/25/17 20:17
[2017-04-29] MEDS: HEPARIN/ 0.45% NACL-25,000 UNIT/500 ML 25,000 UNIT/500 ML BAG IV SCH (07:27)
[2017-04-29 07:44] LABS: PTT-LA 48 sec (<=40)
[2017-04-29 07:54] LABS: Hematocrit 32.6 % (35.5-45.6); Hemoglobin 11.4 gm/dl (11.8-15.2)
[2017-04-29 08:15] LABS: Alanine Aminotransferase 75 units/L (7-56); Albumin 3.1 g/dL (3.9-5); Albumin/Globulin Ratio 0.8 %; Alkaline Phosphatase 77 units/L (35-129); Anion Gap 19 mmol/L; BUN/Creatinine Ratio 12.72; Blood Urea Nitrogen 14 mg/dL (9-20); Calcium 9.3 mg/dL (8.4-10.2); Carbon Dioxide 20 mmol/L (22-30); Chloride 105.8 mmol/L (98-107); Glucose 93 mg/dL (75-100); Potassium 4.3 mmol/L (3.6-5.0); Sodium 140 mmol/L (137-145); Total Protein 6.8 g/dL (6.3-8.2)
--- NOTE | 2017-04-29 09:46 | Hem/Onc Progress Note ---
Assessment and Plan pt to start eliquis he had questions about follow-up. Patient had questions about dosing of medications. I explained to him again. He will be followed up with cardiology. I would like to see him in my office to talk about his hypercoagulable workup when available. Patient understands. He has my card. Subjective Date of service: 04/29/17 Interval history: Patient feels well. No active bleeding. Leg pain is improved. Shortness of breath has improved. Objective - Constitutional Vitals: Last Vital Signs Temp 98.3 F 04/29/17 08:52 Pulse 83 04/29/17 08:52 Resp 18 04/29/17 08:52 BP 97/62 04/29/17 08:52 Pulse Ox 99 04/29/17 08:52 Pain Intensity (0-10): denies any pain Performance status: 2- selfcare, ambulatory - Neck Neck: supple - Respiratory Respiratory effort: Positive: normal Respiratory: bilateral: CTA - Cardiovascular Rhythm: regular Extremities: abnormal - Gastrointestinal General gastrointestinal: Present: soft - Labs Lab Results: Laboratory Results - last 24 hr 04/26/17 04/28/17 04/29/17 09:39 16:41 01:13 Hgb Hct Plt Count Lupus Anticoagulant see below H LA PTT Baseline 48 H dRVVT Confirm Interp Negative Heparin Anti-Xa Level 0.11 L 0.51 Sodium Potassium Chloride Carbon Dioxide Anion Gap BUN Creatinine Estimated GFR BUN/Creatinine Ratio Glucose Calcium Total Bilirubin AST ALT Alkaline Phosphatase Total Protein Albumin Albumin/Globulin Ratio 04/29/17 04/29/17 04/29/17 07:37 07:37 07:37 Hgb 11.4 L Hct 32.6 L Plt Count 394 Lupus Anticoagulant LA PTT Baseline dRVVT Confirm Interp Heparin Anti-Xa Level 0.85 H Sodium 140 Potassium 4.3 Chloride 105.8 Carbon Dioxide 20 L Anion Gap 19 BUN 14 Creatinine 1.1 Estimated GFR > 60 BUN/Creatinine Ratio 12.72 Glucose 93 Calcium 9.3 Total Bilirubin 0.40 AST 34 ALT 75 H Alkaline Phosphatase 77 Total Protein 6.8 Albumin 3.1 L Albumin/Globulin Ratio 0.8
[2017-04-29] MEDS ORDERED: ELIQUIS PO SCH (10:00)
--- NOTE | 2017-04-29 10:07 | Discharge Summary ---
Providers - Providers Date of Admission: 04/25/17 18:30 Date of discharge: 04/29/17 Attending physician: FIOR SULLIVAN 04/25/17 16:42 Consult to Physician [CONS] Routine Consulting Provider: FRANKI WALTON Reason For Exam: DVT Place consult to:: cardiology Notified:: Regina Phone number called:: In house Time called:: 08:08 04/26/17 09:33 Consult to Physician [CONS] Routine Consulting Provider: ALLAN PALMER Reason For Exam: DVT/PE Place consult to:: Dr. Palmer Notified:: Dr Palmer Was contact made?: Yes Time called:: 09:40 Primary care physician: JAMARI Schwartz SHE[facility] Hospitalization Disposition: DC- TO HOME OR SELFCARE Core Measure Documentation - Palliative Care Palliative Care/ Comfort Measures: Not Applicable - Core Measures Any of the following diagnoses?: DVT/PE - VTE Discharge Requirements Deep Vein Thrombosis/Pulmonary Embolism Present on Admission: Yes Has pt received <5 days of overlap therapy or INR<2.0: No (on Eliquis) Anticoagulant overlap therapy prescribed at discharge: No Contraindication No Overlap Therapy order at DC: Not Indicated (on Eliquis) Exam - Constitutional Vitals: Temp Pulse Resp BP Pulse Ox 98.3 F 83 18 97/62 99 04/29/17 08:52 04/29/17 08:52 04/29/17 08:52 04/29/17 08:52 04/29/17 08:52 Plan Activity: no restrictions Diet: other (cardiac diet) Additional Instructions: Take Eliquis 5 mg 2 tablets twice a day for first 7 days. Take Eliquis 5 mg 1 tablet twice a day from day 8. If you notice bleeding, stopped the medication and contact M.D. or go to emergency room. Advice 3 days rest, check with primary care physician for further instruction Follow up with: JAMARI RYAN MD [Primary Care Provider] - 7 Days ALLAN PALMER MD [Staff Physician] - 7 Days PARVEEN HOU MD [Staff Physician] - 7 Days Prescriptions: Apixaban [Eliquis] 2 tab PO BID #26 tablet Apixaban [Eliquis] 1 tab PO BID #42 tablet
[2017-04-29] MEDS: BABY ASPIRIN PO SCH (10:10)
[2017-04-29] MEDS: LOPRESSOR PO SCH (10:11)
[2017-04-29 13:11] VITALS: BP 115/73
[2017-04-29 13:40] LABS: Protein S, Free 81 % normal (57-171); Protein S, Total 125 % (70-140)
--- NOTE | 2017-04-29 14:06 | Progress Note ---
Assessment and Plan Assessment: PE - echo with NAF. RLE DVT CAD, s/p CABG x 3 on 04/16/2017 H/o DVT in RLE Plan: Currently stable cardiac status. Cont present regimen, including Eliquis, 5mg PO BID. Pt to f/u as OP with Dr. Marlow regarding hypercoagulable workup. Pt may discharge home from cardiology standpoint. Recommend f/u in our office with Dr. Colbert within 2 weeks of hospital discharge. Pt states he will call and make his own appointment ([phone]). The patient has been seen in conjunction with Dr. Gimenez who agrees with the assessment and plan of care. Subjective Date of service: 04/29/17 Principal diagnosis: DVT/PE Interval history: Pt sitting up in chair comfortably, no complaints. Says he has been ambulating around unit without difficulty. VSS. Converted to Eliquis this AM. Awaiting discharge. Objective Last Vital Signs Temp 98.1 F 04/29/17 13:09 Pulse 90 04/29/17 13:09 Resp 18 04/29/17 13:09 BP 115/73 04/29/17 13:09 Pulse Ox 99 04/29/17 13:09 - Physical Examination General: Appears Well HEENT: Positive: PERRL, Normocephaly, Mucus Membranes Moist Neck: Positive: neck supple, trachea midline. Negative: JVD/HJR Cardiac: Positive: Reg Rate and Rhythm, S1/S2 Lungs: Positive: Normal Exam, clear to auscultation, Normal Breath Sounds Neuro: Positive: Grossly Intact, Cranial Nerve 2-12 Intact Abdomen: Positive: Unremarkable, Soft, Active Bowel Sounds. Negative: Organomegaly, Tender Skin: Positive: Clear. Negative: Rash, Wound Musculoskeletal: No Fluid Collection, No Pain, Normal Range of Motion Extremities: Present: normal, upper extr. pulses, lower extr. pulses. Absent: edema - Labs and Meds Cardiac Enzymes 04/29/17 Range/Units 07:37 AST 34 (5-40) units/L CBC 04/29/17 Range/Units 07:37 Hgb 11.4 L (11.8-15.2) gm/dl Hct 32.6 L (35.5-45.6) % Plt Count 394 (140-440) K/mm3 Comprehensive Metabolic Panel 07/24/17 Range/Units 07:37 Sodium 140 (137-145) mmol/L Potassium 4.3 (3.6-5.0) mmol/L Chloride 105.8 (98-107) mmol/L Carbon Dioxide 20 L (22-30) mmol/L BUN 14 (9-20) mg/dL Creatinine 1.1 (0.8-1.5) mg/dL Glucose 93 (75-100) mg/dL Calcium 9.3 (8.4-10.2) mg/dL AST 34 (5-40) units/L ALT 75 H (7-56) units/L Alkaline Phosphatase 77 (35-129) units/L Total Protein 6.8 (6.3-8.2) g/dL Albumin 3.1 L (3.9-5) g/dL - Imaging and Cardiology EKG: report reviewed (Right axis deviation), image reviewed Echo: report reviewed Cardiac cath: report reviewed - Telemetry EKG Rhythm: Sinus Rhythm - EKG Sinus rhythms and dysrhythmias: sinus rhythm
[2017-05-06] MEDS ORDERED: ELIQUIS PO SCH (10:00)
== END 2017-04-29 14:28 | disposition home or self-care (01) | DRG 299 ==
LOC: UNDOADMIN 15:45 → 4A 15:45
PROVIDERS: ADMIT Internal Medicine; ATTEND Internal Medicine
DX: I82.431 Acute embolism and thrombosis of right popliteal vein (principal); I26.99 Other pulmonary embolism without acute cor pulmonale; I25.10 Atherosclerotic heart disease of native coronary artery without angina pectoris; I08.1 Rheumatic disorders of both mitral and tricuspid valves; I10 Essential (primary) hypertension; I70.0 Atherosclerosis of aorta; Z82.49 Family history of ischemic heart disease and other diseases of the circulatory system; Z88.0 Allergy status to penicillin; Z88.6 Allergy status to analgesic agent; Z79.82 Long term (current) use of aspirin; Z95.1 Presence of aortocoronary bypass graft; Z90.49 Acquired absence of other specified parts of digestive tract
CPT/HCPCS: 36415; 71275; 80053; 83516; 85014; 85018; 85025; 85049; 85210; 85220; 85301; 85305; 85520; 85610; 85613; 85730; 93005; 93010; 93306; A9270-GY; J1644; Q9967

== ENCOUNTER 2018-11-03 06:24 | Inpatient (IN) | payer OTHER ==
[2018-11-03] MEDS ORDERED: ECOTRIN PO ONE (06:50)
[2018-11-03] MEDS: NACL 0.9% 500 ML 500 ML IV SCH ×2 (07:23→10:00)
[2018-11-03] MEDS ORDERED: SOLU-Medrol IV NR (08:39)
[2018-11-03] MEDS ORDERED: BENADRYL IV NR (09:00)
[2018-11-03] MEDS ORDERED: PEPCID IV NR (09:00)
[2018-11-03] MEDS ORDERED: HEPARIN/NS 5000 UNIT/500ML(CATH LAB) 1,000 ML IR ONE (09:38)
[2018-11-03] MEDS ORDERED: SUBLIMAZE ONE (09:39)
[2018-11-03] MEDS ORDERED: CALAN ONE (09:39)
[2018-11-03] MEDS ORDERED: VERSED ONE (09:39)
[2018-11-03] MEDS ORDERED: XYLOCAINE 2% INFILTRATI ONE (09:39)
[2018-11-03] MEDS ORDERED: NITROGLYCERIN SYRINGE 3 ML ONE (09:40)
[2018-11-03] MEDS: HEPARIN 10,000 UNITS/10 ML ONE ×2 (10:25→11:00)
[2018-11-03] MEDS ORDERED: BRILINTA ONE (10:41)
[2018-11-03] MEDS ORDERED: ALUM-MAG HYDROX-SIMETH 200-200-20MG/5ML ONE (10:42)
--- NOTE | 2018-11-03 12:02 | Cardiac Catherization Report ---
LEFT HEART CATHETERIZATION This is a 48-year-old -[place] gentleman of Dr. Colbert. CLINICAL INFORMATION: This is a 48-year-old -[place] gentleman with history of bypass in 2017. CLIFFORD to LAD, SVG to diagonal, SVG to PDA, presents with recurrent chest pain with exertion, Bur[place]on classification 3 despite medical therapy and is here for left heart catheterization. Left heart catheterization done under moderate sedation, 1 mg Versed, 50 mcg of fentanyl. Total sedation time 49 minutes. Start time 10:01 a.m., finish 10:50 a.m. Procedure was done via the right common femoral artery, sterile technique, local anesthesia, under fluoroscopy, 5-Palestinian groin sheath inserted. Left system engaged with JL4 catheter. Left main is large and patent, bifurcates to large caliber LAD, proximal same, mid 99% with competitive flow, small diagonal is patent. Circumflex and AV groove is a large caliber, proximally goes into a large caliber OM1, then after the OM1 is a small to medium caliber OM2 that is patent and AV groove. RCA engaged with JR4 catheter, is a large dominant vessel, but diffusely diseased with proximal 90% and mid 70%, distal is patent, bifurcates into medium caliber PDA, PLV. LV gram done in [place] and VEGA view shows normal LV function. The LVEDP of 19 mmHg, LV is 132. Aortic is 134/81. No gradient across the aortic valve on pullback noted. CLIFFORD to LAD was engaged with IM catheter, is a large caliber graft, free of disease at the ostium, body and anastomosis site, feeds into mid LAD with good retrograde and anterograde flow to a large caliber LAD. SVG to diagonal with multiple catheters shows occluded and SVG to PDA with multiple catheter shows occluded. PROCEDURE HISTORY: Left heart catheterization, PCI, intravascular ultrasound, internal mammary angiography and attempted venous graft angiographically. Percutaneous intervention of the RCA/ intravascular ultrasound 1. Changed the 5-Palestinian groin sheath to a 6-Palestinian groin sheath. 2. IV heparin was given to maintain ACT to 247. 3. Engaged RCA with a AR mod catheter. 4. Crossed with great difficulty with a run-through wire, able to cross into the PDA with a short run-through wire. 5. Tried to use intravascular ultrasound, but would not go across the proximal portion. 6. Ballooned with a 2.5 x 15 in the proximal mid at 12 atmospheres x 2 inflations. 7. Repeat intravascular ultrasound showed diffuse disease and the proximal mid with distal reference vessel 3.5 x 3.6 and proximal 3.5 x 3.8. 8. Stented the mid up to the crux with a drug-eluting Resolute Sumeet 3.5 x 38 at 15 atmospheres. 9. Stent to the proximal overlap with the previously deployed stent with a Resolute Sumeet 3.5 x 18 at 16-17 atmospheres. 10. Excellent angiographic result with good stent apposition and expansion noted. Removed coronary wire. Multiple angiogram. Continued BHAVIN 3 flow. Improved coronary flow distally now and reduced stenosis from 90% down to 0 with good stent apposition and expansion noted. No dissection or perforation noted. 11. A 6-Palestinian guiding catheter taken over guidewire, 6-Palestinian groin was sewn in. No hematoma, no bleeding. SUMMARY: 1. Successful PCI of the proximal mid RCA with 2 drug-eluting Resolute 3.5 x 38 and 3.5 x 18 overlapping intravascular ultrasound with good runoff in the PDA and PLV: 2. Left main patent, LAD mid 99% with a patent CLIFFORD to LAD, circumflex patent, OM1, OM2 patent. 3. Normal LV function. 4. Post-PCI care with aspirin and Brilinta, minimum 1 year dual antiplatelet therapy. Discussed in detail with the patient and patient's family. JOB# [id number] CHARMAINE/JOSUE
[2018-11-03] MEDS ORDERED: ZOFRAN IV PRN (12:41)
[2018-11-03] MEDS ORDERED: ULTRAM PO PRN (12:41)
[2018-11-03] MEDS ORDERED: NACL 0.9% 1000 ML 1,000 ML IV SCH (13:00)
[2018-11-03] MEDS: BRILINTA PO SCH (21:24)
[2018-11-03] MEDS: TOPROL XL PO SCH (21:25)
[2018-11-04 07:03] LABS: Basophils % (Auto) 0.1 % (0.0-1.8); Eosinophils % (Auto) 0.1 % (0.0-4.3); Hematocrit 44.1 % (35.5-45.6); Hemoglobin 15.4 gm/dl (11.8-15.2); Lymphocytes # (Auto) 1.8 K/mm3 (1.2-5.4); Mean Corpuscular HGB Conc 35 % (32-34); Mean Corpuscular Volume 92 fl (84-94); Monocytes # (Auto) 0.8 K/mm3 (0.0-0.8); Monocytes % (Auto) 6.3 % (0.0-7.3); Platelet Count 287 K/mm3 (140-440); Red Blood Count 4.78 M/mm3 (3.65-5.03); Red Cell Distribution Width 12.9 % (13.2-15.2)
[2018-11-04 07:10] LABS: BUN/Creatinine Ratio 19; Blood Urea Nitrogen 23 mg/dL (9-20); Calcium 9.3 mg/dL (8.4-10.2); Creatine Kinase MB 2.2 ng/mL (0.0-4.0); Hemolysis Index 5
--- NOTE | 2018-11-04 09:31 | Short Stay Summary ---
Short Stay Documentation Date of service: 11/04/18 - History H&P: obtained from office - Allergies and Medications Current Medications: Allergies Penicillins Allergy (Verified 04/11/17 08:57) Rash oxycodone Adverse Reaction (Verified 04/26/17 04:25) Shortness of Breath IV CONTRAST DYE Adverse Reaction (Uncoded 11/03/18 06:25) Anaphylaxis Home Medications Medication Instructions Recorded Confirmed Last Taken Type Aspirin EC [Aspirin Enteric Coated 81 mg PO DAILY 04/11/17 11/03/18 11/02/18 History TAB] 81mg Metoprolol Succinate 25 mg PO BID 04/11/17 11/03/18 11/02/18 History 25mg AtorvaSTATin [Lipitor] 40 mg PO QHS 04/27/17 11/03/18 11/02/18 History 40mg Nitroglycerin [Nitrostat] 0.4 mg SL Q5M PRN 07/05/17 11/03/18 10/28/18 History 0.4mg Folic Acid [Folvite] 1 mg PO HS 11/03/18 11/03/18 11/02/18 History 1mg Active Medications Aspirin (Baby Aspirin) 81 mg PO QDAY [facility] Atorvastatin Calcium (Lipitor) 40 mg PO QHS [facility] Last Admin: 11/03/18 21:24 Dose: 40 mg Documented by: Metoprolol Succinate (Toprol Xl) 25 mg PO BID [facility] Last Admin: 11/03/18 21:25 Dose: 25 mg Documented by: Ondansetron HCl (Zofran) 4 mg IV Q8H PRN PRN Reason: N/V unrelieved by Reglan Ticagrelor (Brilinta) 90 mg PO BID [facility] Last Admin: 11/03/18 21:24 Dose: 90 mg Documented by: Tramadol HCl (Ultram) 50 mg PO Q4H PRN PRN Reason: Pain, Mild (1-3) - Physical exam General appearance: no acute distress Integumentary: no rash HEENT: Atraumatic, PERRLA, EOMI Lungs: Clear to auscultation Breasts: deferred Heart: Regular rate, No murmurs Gastrointestinal: normal Male Genitourinary: deferred Rectal Exam: deferred Extremities: no ischemia Neurological: Normal gait - Brief post op/procedure progress note Date of procedure: 11/03/18 Pre-op diagnosis: angina Post-op diagnosis: other (pci of rca) Procedure: Left heart cath revealed left main large patent LAD proximal 100% circumflex large and patent obtuse marginal one medium caliber vessel patent: 2 small pa tent. CLIFFORD to LAD patent which is a large caliber LAD SVG to diagnosis occluded SVG to PDA was occluded RCA proximal 90% with mid diffuse 70% distally patent with normal function patient had PCI of the mid RCA with a drug-eluting resolution kenan 3.5 x 38 mm proximal overlapping with the resolution kenan 3.5 x 18 resulting in reduced stenosis from 90% down to 0% with increased blood flow into the PDA PLV with normal LV function Anesthesia: local Estimated blood loss: none Pathology: none - Hospital course Hospital course: Patient had left heart cath for angina with history of hypertension hyperlipidemia bypass surgery in 2017 patient had successful PCI of the RCA had anticipated tonight midnight stay but patient is feeling better and has reduced symptomology and is ambulating without any chest pain shortness of breath patient will be discharged with aspirin and brilinta and all home medications. - Disposition Condition at discharge: Good Disposition: [id number] TO HOME OR SELFCARE - Discharge Diagnoses (1) Hyperlipidemia Status: Chronic Qualifiers: Hyperlipidemia type: mixed hyperlipidemia Qualified Code(s): E78.2 - Mixed hyperlipidemia (2) Angina, class III Status: Acute (3) CAD (coronary artery disease) Status: Chronic Qualifiers: Coronary Disease-Associated Artery/Lesion type: [place] artery Associated angina: with stable angina (4) Hypertension Status: Chronic Qualifiers: Hypertension type: essential hypertension Qualified Code(s): I10 - Essent ial (primary) hypertension Short Stay Discharge Plan Activity: advance as tolerated Diet: low fat, low cholesterol, low salt Wound: keep clean and dry Follow up with: JAMARI RYAN MD [Primary Care Provider] - 7 Days Prescriptions: Ticagrelor [Brilinta] 90 mg PO BID #60 tablet
[2018-11-04] MEDS ORDERED: BABY ASPIRIN PO SCH (10:00)
[2018-11-04] MEDS: TOPROL XL PO SCH (10:02)
[2018-11-04] MEDS: BRILINTA PO SCH (10:02)
--- NOTE | 2018-11-04 10:52 | XRay Report ---
AP CHEST: HISTORY: Post PCI, chest pain Previous CABG changes are suspected. AP view of the chest demonstrates a normal mediastinal and cardiac contour with clear lungs and normal bony and soft tissue structures. IMPRESSION: Unremarkable AP chest.
[2018-11-04 12:14] VITALS: BP 123/79
== END 2018-11-04 13:33 | disposition home or self-care (01) | DRG 247 ==
LOC: CATHLABREC 06:24 → 4A 12:26
PROVIDERS: ADMIT Internal Medicine; ATTEND Internal Medicine
PROC: 027035Z Dilation of Coronary Artery, One Artery with Two Drug-eluting Intraluminal Devices, Percutaneous Approach (ICD-10-PCS; principal; 2018-11-03)
PROC: 4A023N7 Measurement of Cardiac Sampling and Pressure, Left Heart, Percutaneous Approach (ICD-10-PCS; 2018-11-03)
PROC: B2111ZZ Fluoroscopy of Multiple Coronary Arteries using Low Osmolar Contrast (ICD-10-PCS; 2018-11-03)
PROC: B2151ZZ Fluoroscopy of Left Heart using Low Osmolar Contrast (ICD-10-PCS; 2018-11-03)
PROC: B2131ZZ Fluoroscopy of Multiple Coronary Artery Bypass Grafts using Low Osmolar Contrast (ICD-10-PCS; 2018-11-03)
PROC: B2181ZZ Fluoroscopy of Left Internal Mammary Bypass Graft using Low Osmolar Contrast (ICD-10-PCS; 2018-11-03)
PROC: B240ZZ3 Ultrasonography of Single Coronary Artery, Intravascular (ICD-10-PCS; 2018-11-03)
DX: T82.898A Other specified complication of vascular prosthetic devices, implants and grafts, initial encounter (principal); Y83.8 Other surgical procedures as the cause of abnormal reaction of the patient, or of later complication, without mention of misadventure at the time of the procedure; Y92.89 Other specified places as the place of occurrence of the external cause; E78.2 Mixed hyperlipidemia; E66.9 Obesity, unspecified; I51.7 Cardiomegaly; Z88.5 Allergy status to narcotic agent; Z88.0 Allergy status to penicillin; Z91.041 Radiographic dye allergy status; Z79.82 Long term (current) use of aspirin; Z79.899 Other long term (current) drug therapy; Z86.718 Personal history of other venous thrombosis and embolism; Z79.01 Long term (current) use of anticoagulants; Z95.1 Presence of aortocoronary bypass graft; I25.118 Atherosclerotic heart disease of native coronary artery with other forms of angina pectoris; Z86.711 Personal history of pulmonary embolism; Z68.33 Body mass index [BMI] 33.0-33.9, adult
CPT/HCPCS: 36415; 71045; 80048; 82550; 82553; 82962; 84484; 85025; 85347; 92928; 92978; 93005; 93010; 93459; 96374; 96375; G0378; A9270-GY; C1725; C1753; C1769; C1874; C1887; C9600; J1200; J1644; J2250; J2930; J3010; J7040; Q9967

== ENCOUNTER 2019-06-11 16:24 | Emergency (ER) | payer OTHER ==
[2019-06-11] MEDS ORDERED: NACL 0.9% 1000 ML 1,000 ML IV ONE (16:32)
--- NOTE | 2019-06-11 16:35 | Emergency Department Report ---
ED Syncope HPI - General Stated Complaint: HEAT EXHAUSTION/DEHYDRATION Time Seen by Provider: 06/11/19 16:31 Source: patient, EMS Exam Limitations: no limitations - History of Present Illness Initial Comments: Patient is a 49-year-old male presents emergency room with complaints of syncopal episode. Patient states he had a brief loss of consciousness. Patient states he is working outside all day and became hot and lightheaded and passed out. Patient states he woke up almost immediately. Patient denies trauma. Patient denies any head. Patient denies any pain. Patient denies chest pain shortness of breath. Patient states he has a past medical history hypertension, hyperlipidemia, CAD and has had stents and a triple bypass. Patient denies kidney problems or CHF. Procedure EMS. EMS states patient was initially hypotensive and was given 200 mL of fluid and his blood pressure returned to normal. Timing/Prior Episodes: no prior history, single episode today Precipitating Factors: Positive: lightheadedness Context: activity Loss of Consciousness: brief (seconds) Current Symptoms: back to normal - Related Data Allergies/Adverse Reactions: Allergies Penicillins Allergy (Verified 04/11/17 08:57) Rash oxycodone Adverse Reaction (Verified 04/26/17 04:25) Shortness of Breath IV CONTRAST DYE Adverse Reaction (Uncoded 11/03/18 06:25) Anaphylaxis Home Medications: Ambulatory Orders Aspirin EC [Halfprin EC] 81 mg PO DAILY 04/11/17 Metoprolol Succinate 25 mg PO BID 04/11/17 AtorvaSTATin [Lipitor] 40 mg PO QHS 04/27/17 Nitroglycerin [Nitrostat] 0.4 mg SL Q5M PRN 07/05/17 Folic Acid [Folvite] 1 mg PO HS 11/03/18 Metoprolol Xl [Metoprolol SUCCINATE ER TAB] 25 mg PO QDAY tablet 11/04/18 Ticagrelor [Brilinta] 90 mg PO BID #60 tablet 11/04/18 ED Review of Systems ROS: Stated complaint: HEAT EXHAUSTION/DEHYDRATION Other details as noted in HPI Constitutional: denies: chills, fever Eyes: denies: eye pain, eye discharge, vision change ENT: denies: ear pain, throat pain Respiratory: denies: cough, shortness of breath, wheezing Cardiovascular: denies: chest pain, palpitations Endocrine: no symptoms reported Gastrointestinal: denies: abdominal pain, nausea, diarrhea Genitourinary: denies: urgency, dysuria Musculoskeletal: denies: back pain, joint swelling, arthralgia Skin: denies: rash, lesions Neurological: denies: headache, weakness, paresthesias Psychiatric: denies: anxiety, depression Hematological/Lymphatic: denies: easy bleeding, easy bruising ED Past Medical Hx - Past Medical History Previous Medical History?: Yes Hx Hypertension: Yes Hx Heart Attack/AMI: Yes Hx Congestive Heart Failure: No Hx Deep Vein Thrombosis: Yes Hx Liver Disease: No Hx Renal Disease: No Hx Kidney Stones: No - Surgical History Past Surgical History?: Yes Hx Coronary Stent: Yes Hx Open Heart Surgery: Yes Hx Appendectomy: Yes - Family History Family history: no significant - Social History Smoking Status: Never Smoker Substance Use Type: None - Medications Home Medications: Home Medications Medication Instructions Recorded Confirmed Last Taken Type Aspirin EC [Halfprin EC] 81 mg PO DAILY 04/11/17 11/03/18 11/02/18 History 81mg Metoprolol Succinate 25 mg PO BID 04/11/17 11/03/18 11/02/18 History 25mg AtorvaSTATin [Lipitor] 40 mg PO QHS 04/27/17 11/03/18 11/02/18 History 40mg Nitroglycerin [Nitrostat] 0.4 mg SL Q5M PRN 07/05/17 11/03/18 10/28/18 History 0.4mg Folic Acid [Folvite] 1 mg PO HS 11/03/18 11/03/18 11/02/18 History 1mg Metoprolol Xl [Metoprolol 25 mg PO QDAY tablet 11/04/18 Unknown Rx SUCCINATE ER TAB] Ticagrelor [Brilinta] 90 mg PO BID #60 tablet 11/04/18 Unknown Rx ED Physical Exam - General Limitations: No Limitations General appearance: alert, in no apparent distress - Head Head exam: Present: atraumatic, normocephalic - Eye Eye exam: Present: normal appearance - ENT ENT exam: Present: mucous membranes moist - Neck Neck exam: Present: normal inspection - Respiratory Respiratory exam: Present: normal lung sounds bilaterally. Absent: respiratory distress - Cardiovascular Cardiovascular Exam: Present: regular rate, normal rhythm. Absent: systolic murmur, diastolic murmur, rubs, gallop - GI/Abdominal GI/Abdominal exam: Present: soft, normal bowel sounds - Rectal Rectal exam: Present: deferred - Extremities Exam Extremities exam: Present: normal inspection - Back Exam Back exam: Present: normal inspection - Neurological Exam Neurological exam: Present: alert, oriented X3 - Psychiatric Psychiatric exam: Present: normal affect, normal mood - Skin Skin exam: Present: warm, dry, intact, normal color. Absent: rash ED Course Vital Signs 06/11/19 06/11/19 06/11/19 16:36 16:42 16:45 Pulse Rate 80 82 Respiratory 15 18 23 Rate Blood Pressure 107/81 107/81 O2 Sat by Pulse 95 Oximetry 06/11/19 06/11/19 06/11/19 17:00 17:16 17:30 Pulse Rate 76 77 77 Respiratory 15 12 11 L Rate Blood Pressure O2 Sat by Pulse 94 98 100 Oximetry 06/11/19 06/11/19 06/11/19 17:46 18:00 18:16 Pulse Rate 79 71 66 Respiratory 11 L 15 14 Rate Blood Pressure 121/81 121/81 O2 Sat by Pulse 100 98 Oximetry 06/11/19 18:30 Pulse Rate 69 Respiratory 18 Rate Blood Pressure 121/81 O2 Sat by Pulse 100 Oximetry - Reevaluation(s) Reevaluation #1: Patient states he is feeling better. Patient denies dizziness. Patient denies any complaints. I discussed all results with patient. Patient is stable for discharge. Patient will be discharged home. Patient agrees with plan of care. Patient given discharge instructions. Patient voiced understanding discharge instructions. 06/11/19 20:22 ED Medical Decision Making - Lab Data Result diagrams: 06/11/19 16:45 06/11/19 16:45 - EKG Data -: EKG Interpreted by Me EKG shows normal: sinus rhythm, axis, intervals, QRS complexes, ST-T waves Rate: normal - Radiology Data Radiology results: report reviewed, image reviewed interpreted by me: Negative chest x-ray Ventilation/perfusion scan lungs INDICATION: Syncope, elevated d-dimer TECHNIQUE: The patient was administered 15.4 mCi of xenon-133 for the ventilation portion of the study and 4.2 mCi of technetium 99 MAA for the perfusion phase FINDINGS: There is slight air trapping at the lung bases with the ventilation otherwise normal. The perfusion phase shows no focal segmental or subsegmental perfusion defects and there is no evidence of pulmonary emboli with the study essentially normal. CHEST 1 VIEW INDICATION: syncope. elevated d dimer COMPARISON: None FINDINGS: Support devices: None Heart: Normal Lungs/Pleura: Previous sternotomy. No acute pulmonary disease. No appreciable pleural fluid. IMPRESSION: 1. No acute disease and no interval change. CT head without contrast CLINICAL HISTORY: Syncope FINDINGS: No previous exams available for comparison. The brain appears to demonstrate appropriate attenuation for age. The ventricular system is appropriate in size and configuration. There is no clear CT evidence of acute intracranial hemorrhage or significant mass effect. There is mild focal opacification involving the visualized inferior maxillary sinuses at. All CT scans at this location are performed using the CT dose reduction for [employer] by means of automated exposure control. IMPRESSION: There is no CT evidence of acute intracranial process. - Medical Decision Making is a 49-year-old male presents emergency room with complaints of syncopal episode after working outside in the heat all day. Patient was found by EMS to be hypotensive and responded well to treatment and blood pressure improved with minimal fluid resuscitation. Patient given a liter of fluids by EMS and another liter in the ER. Patient found to have an elevated d-dimer and had a nuclear V/Q scan and was normal. Patient's chest x-ray negative. Patient's EKG normal limits. Patient's head CT done physical episode and was negative. Patient's labs essentially unremarkable except for elevated d-dimer and dehydration. Patient responded well to treatment. Patient stable for discharge. Patient was discharged home. Patient instructed to increase water and stay out of the he at. - Differential Diagnosis syncope. Heat exhaustion. Dehydration. Critical Care Time: Yes Critical care attestation.: If time is entered above; I have spent that time in minutes in the direct care of this critically ill patient, excluding procedure time. Critical Care Time: 35 minutes ED Disposition Clinical Impression: Elevated d-dimer, Dehydration, Renal insufficiency Heat exhaustion Qualifiers: Encounter type: initial encounter Qualified Code(s): T67.5XXA - Heat ex haustion, unspecified, initial encounter Syncope Qualifiers: Syncope type: heat syncope Encounter type: initial encounter Qualified Code(s): T67.1XXA - Heat syncope, initial encounter Hypotension Qualifiers: Hypotension type: unspecified hypotension type Qualified Code(s): I95.9 - Hypotension, unspecified Disposition: - TO HOME OR SELFCARE Is pt being admited?: No Does the pt Need Aspirin: No Condition: Stable Instructions: Syncope (ED), Heat Exhaustion (ED) Additional Instructions: Patient to follow up with primary care in 2-3 days. Patient to return to ER if condition worsens. Patient to avoid activity, strenuous work and working outside until cleared by primary care. Patient increase water. Patient to continue all medications as directed by his physicians. Referrals: PRIMARY CARE, [Primary Care Provider] - 2-3 Days Time of Disposition: 20:29
[2019-06-11 16:56] LABS: Basophils # (Auto) 0.1 K/mm3 (0.0-0.1); Eosinophils % (Auto) 0.1 % (0.0-4.3); Hematocrit 45.3 % (35.5-45.6); Hemoglobin 15.7 gm/dl (11.8-15.2); Lymphocytes # (Auto) 1.7 K/mm3 (1.2-5.4); Lymphocytes % (Auto) 23.1 % (13.4-35.0); Mean Corpuscular HGB Conc 35 % (32-34); Mean Corpuscular Volume 93 fl (84-94); Monocytes # (Auto) 0.4 K/mm3 (0.0-0.8); Monocytes % (Auto) 6.1 % (0.0-7.3); Platelet Count 246 K/mm3 (140-440); Red Cell Distribution Width 12.8 % (13.2-15.2)
--- NOTE | 2019-06-11 17:17 | Cat Scan Report ---
CT head without contrast CLINICAL HISTORY: Syncope FINDINGS: No previous exams available for comparison. The brain appears to demonstrate appropriate at tenuation for age. The ventricular system is appropriate in size and configuration. There is no clear CT evidence of acute intracranial hemorrhage or significant mass effect. There is mild focal opacifi cation involving the visualized inferior maxillary sinuses at. All CT scans at this location are perf ormed using the CT dose reduction for [employer] by means of automated exposure control. IMPRESSION: There is no CT evidence of acute intracranial process. Signer Name: Beny Moraes MD Signed: 06/11/2019 5:13 PM Workstation Name: [id number]
[2019-06-11 17:19] LABS: Alanine Aminotransferase 34 units/L (7-56); Albumin 4.5 g/dL (3.9-5); BUN/Creatinine Ratio 11; Blood Urea Nitrogen 19 mg/dL (9-20); Calcium 10.3 mg/dL (8.4-10.2); Hemolysis Index 6
--- NOTE | 2019-06-11 18:21 | XRay Report ---
CHEST 1 VIEW INDICATION: syncope. elevated d dimer COMPARISON: None FINDINGS: Support devices: None Heart: Normal Lungs/Pleura: Previous sternotomy. No acute pulmonary disease. No appreciable pleural fluid. IMPRESSION: 1. No acute disease and no interval change. Signer Name: Raymond Sun MD Signed: 06/11/2019 6:17 PM Workstation Name: [id number]
--- NOTE | 2019-06-11 19:36 | Nuclear Medicine Report ---
Ventilation/perfusion scan lungs INDICATION: Syncope, elevated d-dimer TECHNIQUE: The patient was administered 15.4 mCi of xenon-133 for the ventilation portion of the stud y and 4.2 mCi of technetium 99 MAA for the perfusion phase FINDINGS: There is slight air trapping at the lung bases with the ventilation otherwise normal. The p erfusion phase shows no focal segmental or subsegmental perfusion defects and there is no evidence of pulmonary emboli with the study essentially normal. Signer Name: Juan Daniel Garnica MD Signed: 06/11/2019 7:31 PM Workstation Name: [id number]
[2019-06-11 20:16] VITALS: BP 121/81
== END 2019-06-11 20:37 | disposition home or self-care (01) ==
LOC: ED 16:24
DX: T67.5XXA Heat exhaustion, unspecified, initial encounter (principal); E86.0 Dehydration; I95.9 Hypotension, unspecified; R55 Syncope and collapse; R79.89 Other specified abnormal findings of blood chemistry; N28.9 Disorder of kidney and ureter, unspecified; I25.2 Old myocardial infarction; Z86.718 Personal history of other venous thrombosis and embolism; Z90.49 Acquired absence of other specified parts of digestive tract; Z95.5 Presence of coronary angioplasty implant and graft; X58.XXXA Exposure to other specified factors, initial encounter; Y93.89 Activity, other specified; Y92.89 Other specified places as the place of occurrence of the external cause; Y99.8 Other external cause status
CPT/HCPCS: 36415; 70450; 71045; 78582; 80053; 84484; 85025; 85379; 93005; 93010; 96360; 99291; A9540; A9558; J7030

== ENCOUNTER 2019-11-04 11:37 | Outpatient (CLI) | payer OTHER | END 2019-11-04 11:38 | disposition home or self-care (01) | LOC: PF 11:37 | PROVIDERS: ATTEND Internal Medicine Cardiovascular Disease | DX: R06.09 Other forms of dyspnea (principal) | CPT/HCPCS: 94010; 94726; 94729 ==